=== PATIENT | male | born 1990 ===

== ENCOUNTER 2017-10-20 18:31 | Observation (INO) | payer OTHER ==
[2017-10-20 18:34] VITALS: BMI 24.2
[2017-10-20] MEDS ORDERED: ceFAZolin IV 1 gm in Dextrose 1 GM/50 ML BAG IVPB ONE (19:24)
[2017-10-20] MEDS ORDERED: Tdap Vaccine 0.5 ml Vial (10-64 yrs) IM ONE ×2 (19:25→19:38)
[2017-10-20] MEDS ORDERED: ceFAZolin 1 gm in NS 1 GM/100 ML BAG IVPB ONE (19:40)
--- NOTE | 2017-10-20 19:51 | C.PDOC ---
History Of Present Illness 26 y/o male comes to ed s/p crush injury to right index finger. 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 last tdap unk. pt unable to bend finger. Time Seen by Provider: 10/20/17 19:12 Chief Complaint (Nursing): Finger,Hand,&Wrist History Per: Patient, Other (co-worker) History/Exam Limitations: no limitations Onset/Duration Of Symptoms: Hrs (1) Current Symptoms Are (Timing): Still Present Quality: "Pain" Severity: Severe Pain Scale Rating Of: 9 Past Medical History Reviewed: Historical Data, Nursing Documentation, Vital Signs Vital Signs: Last Vital Signs Temp 98 F 10/21/17 12:03 Pulse 78 10/21/17 12:03 Resp 20 10/21/17 12:03 BP 127/82 10/21/17 12:03 Pulse Ox 99 10/22/17 12:54 - Medical History PMH: No Chronic Diseases Family History: States: Unknown Family Hx - Social History Hx Alcohol Use: Yes Hx Substance Use: No - Immunization History Hx Tetanus Toxoid Vaccination: No Hx Influenza Vaccination: No Hx Pneumococcal Vaccination: No Review Of Systems Constitutional: Negative for: Fever, Chills Musculoskeletal: Positive for: Hand Pain (right index finger). Negative for: Neck Pain, Shoulder Pain Skin: Positive for: Other (laceration and avulsion righ tindex finger) Physical Exam - Physical Exam Appears: Non-toxic, No Acute Distress (uncomfortable) Skin: Warm, Dry Head: Atraumatic, Normacephalic Chest: No Tenderness Cardiovascular: Rhythm Regular Respiratory: No Decreased Breath Sounds, No Wheezing Extremity: Other (right upper ext with from at wrist elbow and shoulder, and thumb and third-fifth fingers. index finger right hand with avulsed skin on dorsal surface over pip; on palmar surface, irregular deep laceration from dip to almost mtp, unable to flex at pip. ) Pulses: Right Radial: Normal, Left Femoral: Normal Neurological/Psych: Oriented x3, Normal Speech, Normal Cognition, Normal Motor, Normal Sensation ED Course And Treatment - Laboratory Results Result Diagrams: 10/20/17 20:50 10/20/17 20:50 O2 Sat by Pulse Oximetry: 99 Medical Decision Making Medical Decision Making: message left for Dr Juarez with his service 2021 xray not visible on infinitt due to technical issues; viewed in xray suite, fx of right middle phalanx noted. [address] Pavon; will admit to medicine and go to or tomorrow. npo after midnight, soak finger in sterile saline/betadine solution and cover with xeroform dressing. 2054 hospitalist paged. [phone] Delgadillo [address] Delgadillo; will admit to Dr Juarez's service. Disposition Discussed With Dr.: Fili Delgadillo Doctor Will See Patient In The: Hospital - Disposition Disposition: HOSPITALIZED Disposition Time: 21:08 Condition: STABLE - Clinical Impression Clinical Impression: Open fracture of phalanx of index finger, Unspecified injury of extensor muscle , fascia and tendon of right index finger at forearm level, sequela
[2017-10-20 20:55] LABS: BASO % 0.4 % (0.0-2.0); EOS % 0.4 % (0.0-4.0); HEMOGLOBIN 16.4 g/dL (12.0-18.0); LYMPH # 2.2 K/uL (1.0-4.3); LYMPH % 21.5 % (20.0-40.0); MEAN CELL VOLUME 84.7 fL (80.0-94.0); MEAN CORPUSCULAR HEMOGLOBIN 29.7 pg (27.0-31.0); MEAN PLATELET VOLUME 8.1 fL (7.2-11.7); MONO # 0.9 K/uL (0.0-0.8); MONO % 9.1 % (0.0-10.0); NEUT # 6.9 K/uL (1.8-7.0); NEUT % 68.6 % (50.0-75.0); NRBC % 0.5 % (0.0-2.0); RBC 5.52 Mil/uL (4.40-5.90); RED CELL DISTRIBUTION WIDTH 12.5 % (11.5-14.5)
[2017-10-20 21:02] LABS: INR 1.1; PROTHROMBIN TIME 11.8 SECONDS (9.7-12.2)
[2017-10-20 21:11] LABS: ALB/GLOB RATIO 1.3 (1.0-2.1); ALBUMIN 4.7 g/dL (3.5-5.0); ALT/SGPT 134 U/L (21-72); AST/SGOT 80 U/L (17-59); BLOOD UREA NITROGEN 9 mg/dL (9-20); CALCIUM 9.8 mg/dl (8.6-10.4); GFR AFRICAN-AMERICAN > 60; GFR NON-AFRICAN AMERICAN > 60
[2017-10-21] MEDS: Morphine 4 MG/ML VIAL IV PRN ×2 (00:06→08:13)
[2017-10-21] MEDS ORDERED: ceFAZolin IV 2 gm in Dextrose 0 GM/0 ML BAG IVPB ONE (09:38)
[2017-10-21] MEDS ORDERED: Lidocaine/Epinephrine 1% 1:100000 10 ML IJ ONE (09:38)
[2017-10-21] MEDS ORDERED: ceFAZolin 1 gm in NS 1 GM/100 ML BAG IVPB ONE (09:38)
[2017-10-21] MEDS ORDERED: Bacitracin 50,000 UNIT in Sodium Chloride 0.9% Irrig 1,000 ML IR SCH (09:51)
[2017-10-21] MEDS ORDERED: Midazolam 2 MG/2 ML VIAL ONE (10:00)
[2017-10-21] MEDS ORDERED: Propofol 10 mg/ml Inj (20 ML) ONE (10:02)
[2017-10-21] MEDS ORDERED: Lidocaine Hydrochloride 0 ML INJ ONE (10:02)
[2017-10-21] MEDS ORDERED: Lidocaine 2% MPF (5 ml) Inj ONE (10:03)
[2017-10-21] MEDS ORDERED: Succinylcholine Chloride 20 mg/ml Syr (5 ml) IV ONE (10:40)
[2017-10-21] MEDS ORDERED: HYDROmorphone 0.5 mg/0.5 ml ISec IVP PRN (11:01)
[2017-10-21] MEDS ORDERED: Oxycodone/Acetaminophen 5/325 mg Tab PO PRN (11:28)
[2017-10-21 11:30] VITALS: O2SAT 99
[2017-10-21 12:03] VITALS: BP 127/82; PULSE 78; RESP 20; TEMP 98
--- NOTE | 2017-10-21 13:12 | PCM.SURG1 ---
Surgeon's Initial Post Op Note - Surgeon's Notes Surgeon: lamar Salvage Engineer: none Type of Anesthesia: General LMA Pre-Operative Diagnosis: open fracture right index finger Operative Findings: see dictation Post-Operative Diagnosis: same Operation Performed: wound exploration, debridement, complex skin closure Specimen/Specimens Removed: none Estimated Blood Loss: EBL {In ML}: 0 Date of Surgery/Procedure: 10/21/17 Time of Surgery/Procedure: 10:00
--- NOTE | 2017-10-21 23:36 | CON ---
DATE: REASON FOR CONSULTATION: Right index finger crush injury. HISTORY OF PRESENT ILLNESS: A 26-year-old right hand dominant male who presents to [facility] Emergency Room after crush injury at work to his index finger on 10/20/2017. 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 The patient presents to [facility] Emergency Room, underwent initial evaluation. I was consulted for further recommendation and treatment option. He is unable to bend the finger due to pain. PAST MEDICAL HISTORY: None. PHYSICAL EXAMINATION: RIGHT INDEX FINGER: There is an open complex wound over the volar and dorsal aspects of the finger at the middle phalanx level. There is exposed flexor tendon. There is a flap of tissue which is avulsed over the dorsum of the finger consistent with epidermal layer. The volar aspect of the wound is measuring about 3 x 4 cm. The whole length of the wound is 7 cm in diameter. The patient has difficulty flexing the finger due to pain. The finger is in a well-aligned position. There is good capillary refill to the tip of the finger. The patient has decreased sensation at the tip of the finger. X-rays of the index finger were seen and reviewed, showing nondisplaced fracture of the middle phalanx. MP, PIP, and DIP joints are well congruent. ASSESSMENT: Open fracture of right index finger with complex wound. PLAN: I discussed the above findings with the patient. This time, I recommended surgery which will include wound exploration, debridement, complex wound closure and all indicated procedures. The patient was admitted to the hospital and started on IV antibiotics. We will bring him to the operating room as soon as medically cleared. Dennys Juarez MD
--- NOTE | 2017-10-22 20:55 | OP ---
PROCEDURE DATE: 10/21/2017 PREOPERATIVE DIAGNOSIS: Grade 2 open fracture of right index finger. POSTOPERATIVE DIAGNOSES: 1. Open fracture, right index finger of middle phalanx. 2. Complex wound middle phalanx. 3. Crush injury of ulnar digital neurovascular bundle. 4. Foreign body, right index finger. PROCEDURE: 1. Adjacent tissue skin transfer for a volar wound, 39335. 2. Exploration of open wound, right index finger, . 3. Complex wound repair of 6 cm, 24930. 4. Debridement of muscle, tendon, and bone, 63815. 5. Open treatment of middle phalanx fracture, 30110. SURGEON: Dennys Juarez MD TYPE OF ANESTHESIA: General and postoperative digital block. BLOOD LOSS: Minimal. COMPLICATIONS: None. SPECIMEN: None. DISPOSITION: Stable to recovery room. INDICATION: A 26-year-old right hand dominant male who injured his finger at the work. 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 The patient was taken emergently to the operating room for debridement and the above procedure. Risks and benefits of the procedure were explained. Risks included but not limited to bleeding, infection, tendon, nerve, vessel injury; instability, chronic pain, potential need for additional surgery in the future. The patient understood the above risks and elected to proceed. DESCRIPTION OF PROCEDURE: Informed consent was obtained. The patient was brought to the operating room and placed supine on the operating room table. After adequate anesthesia was given and prophylactic antibiotics, a well padded nonsterile tourniquet was placed on patient's right upper extremity. The entire extremity was then prepped and draped in standard surgical fashion. A time-out was performed. The arm was elevate and exsanguinated and tourniquet was inflated to 250 mmHg. The Esmarch was removed. The finger was debrided and washed out with copious amount of normal saline and peroxide solution. There is extensive hematoma at the volar aspect of the digit which was removed. Debridement was carried down to the bone with use of curette, all foreign material was removed from the soft tissue as well as from the tendon and bone. The wound was explored. There was disruption of the ulnar neurovascular bundle which was non amenable to repair. The flexor tendon was intact; however, the A3 kimberley was disrupted. The radial neurovascular bundle was intact. There is interactive soft tissue damage of the volar aspect which radiated to the ulnar side of the finger and dorsal side of the middle phalanx. There was epidermal skin lose over the dorsum of the finger. The nail was intact. The middle phalanx was also exposed and was shown to be intact. There was fracture over the ulnar side of the phalanx which was nondisplaced and extra articulate nature. After extensive debridement and irrigation, work was begun on repairing the wound. The wound measured about 6 cm in diameter and complex wound repair was undertaken which required local skin tissue transfer over the volar aspect of the digit with a curved incision through the vascular tissue. After local tissue advancement, the volar aspect was closed with multiple 4-0 nylon sutures with minimal tension under repair. The dorsum of the finger was also evaluated. Multiple 4-0 nylon sutures were placed with minimal tension repair. The tourniquet was then deflated. The tissue flap had good capillary refills. There was no exposure of tendon or bone. Sterile dressing was then applied, consisting of Xeroform, 4 x 4s, and Leeanna. The patient tolerated the procedure well. Prior to dressing, a digital block was given with Marcaine of about 4 mL. The patient tolerated the procedure well, and returned to recovery room in excellent condition. Dennys Juarez MD
--- NOTE | 2017-10-26 12:38 | RAD ---
PROCEDURE: Right Index finger radiographs. HISTORY: COMPARISON: None. TECHNIQUE: AP radiograph of the right hand, as well as spot oblique and lateral images of index finger were obtained. FINDINGS: RIGHT INDEX FINGER: There is an acute nondisplaced intra-articular fracture in the lateral base of the middle phalanx of the 2nd finger. Bone alignment and mineralization are normal. Remainder of the right hand (as seen on the AP view) grossly intact. JOINTS: Normal. SOFT TISSUES: There is soft tissue irregularity and soft tissue swelling in the index finger. No radiopaque foreign body. OTHER FINDINGS: None. IMPRESSION: Acute nondisplaced intra-articular fracture in the lateral base of the middle phalanx of the 2nd finger. Diffuse soft tissue swelling and laceration in the index finger without evidence of radiopaque foreign body.
== END 2017-10-21 14:20 | disposition home or self-care (01) ==
LOC: C.ER 18:31 → C.6T 21:10
PROVIDERS: ADMIT Orthopaedic Surgery
DX: S62.600B Fracture of unspecified phalanx of right index finger, initial encounter for open fracture (principal); S67.190A Crushing injury of right index finger, initial encounter; W23.0XXA Caught, crushed, jammed, or pinched between moving objects, initial encounter
CPT/HCPCS: 11012; 26735; 73130; 80053; 85025; 85610; 85730; 90471; 90715; 96365; 96375; 96376; 99284; G0378; J0690; J1885; J2001; J2250; J2270; J2405; J2704; J3010

== ENCOUNTER 2018-05-30 04:13 | Emergency (ER) | payer OTHER ==
[2018-05-30 04:14] VITALS: BMI 24.2
--- NOTE | 2018-05-30 05:35 | C.PDOC ---
History Of Present Illness 27 year old male presents to the ED c/o left sided neck pain radiating to his left shoulder and upper back. Patient reports his pain worsens with arms movement. Patient denies fever, chills, visual changes, headache, fall, trauma, weakness, numbness. Time Seen by Provider: 05/30/18 04:41 Chief Complaint (Nursing): Upper Extremity Problem/Injury History Per: Patient History/Exam Limitations: no limitations Onset/Duration Of Symptoms: Hrs Current Symptoms Are (Timing): Still Present Quality: "Pain" Exacerbating Factor(s): Movement Recent travel outside of the [place]: No Additional History Per: Patient Past Medical History Reviewed: Historical Data, Nursing Documentation, Vital Signs Vital Signs: Last Vital Signs Temp 98.4 F 05/30/18 04:26 Pulse 89 05/30/18 04:26 Resp 18 05/30/18 04:26 BP 132/74 05/30/18 04:26 Pulse Ox 99 05/30/18 04:26 - Medical History PMH: No Chronic Diseases Surgical History: No Surg Hx Family History: States: Unknown Family Hx - Social History Hx Alcohol Use: Yes Hx Substance Use: No - Immunization History Hx Tetanus Toxoid Vaccination: No Hx Influenza Vaccination: No Hx Pneumococcal Vaccination: No Review Of Systems Constitutional: Negative for: Fever, Chills Eyes: Negative for: Vision Change Cardiovascular: Negative for: Chest Pain Respiratory: Negative for: Cough, Shortness of Breath Gastrointestinal: Negative for: Nausea, Vomiting, Abdominal Pain Musculoskeletal: Positive for: Neck Pain Skin: Negative for: Rash Neurological: Negative for: Weakness, Numbness, Headache, Dizziness Physical Exam - Physical Exam Appears: Non-toxic, No Acute Distress Skin: Normal Color, Warm, Dry Head: Atraumatic, Normacephalic Eye(s): bilateral: Normal Inspection, PERRL, EOMI Ear(s): Bilateral: Normal Oral Mucosa: Moist Neck: Normal ROM, Paracervical Tenderness (left sided ), Supple Chest: Symmetrical Cardiovascular: Rhythm Regular Respiratory: Normal Breath Sounds, No Rales, No Rhonchi, No Wheezing Extremity: Normal ROM, No Tenderness, Capillary Refill (< 2 seconds), No Swelling Pulses: Left Radial: Normal, Right Radial: Normal Neurological/Psych: Oriented x3, Normal Speech, Normal Cognition, Normal Motor, Normal Sensation Gait: Steady ED Course And Treatment O2 Sat by Pulse Oximetry: 99 (ON RA) Pulse Ox Interpretation: Normal Progress Note: Plan: - Flexeril 10 mg PO. - Toradol 30 mg IM. On reassessment, patient is resting comfortably, and is in no acute distress. Mary ent was instructed to follow up with physician/clinic in 1-2 days for further evaluation. Disposition Counseled Patient/Family Regarding: Diagnosis, Need For Followup - Disposition Disposition: HOME/ ROUTINE Disposition Time: 05:48 Condition: STABLE Additional Instructions: Please follw up with PMD Return to ER if worse Prescriptions: Cyclobenzaprine [Cyclobenzaprine HCl] 10 mg PO BID #10 tab Ibuprofen [Motrin] 600 mg PO Q6H #20 tab Instructions: Cervical Muscle Strain (DC), Concussion in Children (ED) Forms: [employer] ([employer]) Print Language: VIETNAMESE - Clinical Impression Clinical Impression: Neck strain - PA / CARE TRANSITION MANAGER / Resident Statement MD/DO has reviewed & agrees with the documentation as recorded. - Scribe Statement The provider has reviewed the documentation as recorded by the Scribe Willi Olsen All medical record entries made by the Ignaciaibhedy were at my direction and personally dictated by me. I have reviewed the chart and agree that the record accurately reflects my personal performance of the history, physical exam, medical decision making, and the department course for this patient. I have also personally directed, reviewed, and agree with the discharge instructions and disposition.
[2018-05-30 05:53] VITALS: BP 123/79; PULSE 81; RESP 16; TEMP 97.9; O2SAT 98
== END 2018-05-30 05:54 | disposition home or self-care (01) ==
LOC: C.ER 04:13
DX: S16.1XXA Strain of muscle, fascia and tendon at neck level, initial encounter (principal); X58.XXXA Exposure to other specified factors, initial encounter
CPT/HCPCS: 96372; 99284; J1885